=== PATIENT | male | born 1935 | race Caucasian/White ===

== ENCOUNTER 2022-04-02 15:00 | Inpatient (IN) | payer MEDICARE ==
[2022-05-24] MEDS ORDERED: Ketorolac Tromethamine 30 MG/ML VIAL ONE ×2 (11:23→14:04)
[2022-05-24] MEDS ORDERED: Gabapentin 300 MG CAP ONE (11:23)
[2022-05-24] MEDS ORDERED: Acetaminophen 325 MG TAB ONE (11:24)
[2022-05-24 12:27] LABS: SARS-CoV-2 NAA Rapid Test Not Detected (NotDetected)
[2022-05-24] MEDS ORDERED: PROPOFOL 20 ML ONE (13:18)
[2022-05-24] MEDS ORDERED: Fentanyl 100 MCG/2 ML VIAL ONE (13:19)
[2022-05-24] MEDS ORDERED: Ondansetron PF 4 MG/2 ML Vial ONE (13:19)
[2022-05-24] MEDS ORDERED: Rocuronium Bromide 10 MG/ML (10ML VIAL) ONE (13:19)
[2022-05-24] MEDS ORDERED: Tranexamic Acid 1,000 MG/10 ML VIAL ONE (13:23)
[2022-05-24] MEDS ORDERED: Neomycin-Polymyxin 1 ML AMP ONE (13:23)
[2022-05-24] MEDS ORDERED: Bupivacaine PF 0.5% 30 ML VIAL ONE (13:23)
[2022-05-24] MEDS ORDERED: Vancomycin 1 GM VIAL ONE (13:23)
[2022-05-24] MEDS ORDERED: CEFAZOLIN 2 GM VIAL ONE (13:30)
[2022-05-24] MEDS ORDERED: Famotidine/PF 20 mg/2ml Vial ONE (13:32)
[2022-05-24] MEDS ORDERED: SUGAMMADEX SODIUM 200 MG/2 ML VIAL ONE (13:33)
[2022-05-24] MEDS ORDERED: HYDROcodone/Acetaminophen 10/325 mg Tablet PO PRN ×2 (13:40)
[2022-05-24] MEDS ORDERED: Zolpidem Tartrate 5 MG TAB PO PRN (13:40)
[2022-05-24] MEDS ORDERED: Ondansetron PF 4 MG/2 ML Vial IVP PRN (13:40)
[2022-05-24] MEDS ORDERED: diphenhydrAMINE 25 MG CAP PO PRN (13:40)
[2022-05-24] MEDS ORDERED: traMADol HCl 50 MG TAB PO PRN (13:40)
[2022-05-24] MEDS ORDERED: Promethazine HCl 25 MG/ML VIAL IM PRN (13:40)
[2022-05-24] MEDS ORDERED: Tranexamic Acid 1,000 MG in Sodium Chloride 0.9% 100 ML IVPB SCH (13:45)
[2022-05-24] MEDS ORDERED: Glycopyrrolate 0.2 MG/ML 5 ML SYRINGE ONE (13:52)
[2022-05-24] MEDS ORDERED: EPINEPHrine 1 MG/ML AMP ONE (14:04)
[2022-05-24] MEDS ORDERED: Morphine 10 MG/ML VIAL ONE (14:05)
[2022-05-24] MEDS ORDERED: Ropivacaine 0.2% HCl/PF 40 ML ONE (14:05)
[2022-05-24 16:58] VITALS: BMI 25.8
[2022-05-24] MEDS: Aspirin 81 mg Enteric Coated Tablet PO SCH (21:05)
[2022-05-24] MEDS: Senokot S 8.6-50 MG TAB PO SCH (21:05)
[2022-05-24] MEDS: CEFAZOLIN 2 GM in Sodium Chloride 0.9% 100 ML IVPB SCH (21:06)
[2022-05-24] MEDS: Ferrous Gluconate 324 MG TAB PO SCH (21:06)
[2022-05-25 04:13] LABS: Hemoglobin 11.9 g/dL (13.5-17.5); Mean Corpuscular HGB CONC 34.4 g/dL (32.0-36.0); Mean Corpuscular Hemoglobin 32.7 pg (27.0-33.0); Mean Corpuscular Volume 95.1 fl (81.2-95.1); Mean Platelet Volume 11.2 fl (7.4-10.4); Platelet Count 158 10x3/uL (150-450); Red Blood Cell (RBC) Count 3.64 10x6/uL (4.32-5.72); White Blood Cell (WBC) Count 8.1 10x3/uL (3.5-10.5)
[2022-05-25] MEDS: CEFAZOLIN 2 GM in Sodium Chloride 0.9% 100 ML IVPB SCH (05:49)
[2022-05-25] MEDS: Multivitamin W/ Minerals 1 TAB PO SCH (10:35)
[2022-05-25] MEDS: Ferrous Gluconate 324 MG TAB PO SCH ×2 (10:35→20:07)
[2022-05-25] MEDS: Senokot S 8.6-50 MG TAB PO SCH ×2 (10:35→20:08)
[2022-05-25] MEDS: Aspirin 81 mg Enteric Coated Tablet PO SCH ×2 (10:35→20:08)
[2022-05-25] MEDS: Acetaminophen 325 MG TAB PO PRN ×2 (11:53→15:46)
[2022-05-25] MEDS ORDERED: Metoprolol Tartrate 25 MG TAB PO SCH (12:00)
[2022-05-25] MEDS ORDERED: Lisinopril 20 MG TAB PO SCH (12:00)
[2022-05-26 05:55] LABS: Hemoglobin 12.1 g/dL (13.5-17.5); Mean Corpuscular HGB CONC 35.2 g/dL (32.0-36.0); Mean Corpuscular Volume 93.7 fl (81.2-95.1); Mean Platelet Volume 10.7 fl (7.4-10.4); Platelet Count 147 10x3/uL (150-450); RBC Distribution Width 13.7 % (11.5-14.5); Red Blood Cell (RBC) Count 3.67 10x6/uL (4.32-5.72); White Blood Cell (WBC) Count 9.1 10x3/uL (3.5-10.5)
[2022-05-26] MEDS: Ferrous Gluconate 324 MG TAB PO SCH (08:58)
[2022-05-26] MEDS: Senokot S 8.6-50 MG TAB PO SCH (08:59)
[2022-05-26] MEDS: Aspirin 81 mg Enteric Coated Tablet PO SCH (09:00)
[2022-05-26] MEDS ORDERED: Metoprolol Tartrate 25 MG TAB PO SCH (09:00)
[2022-05-26] MEDS ORDERED: Lisinopril 20 MG TAB PO SCH (09:00)
[2022-05-26] MEDS: Multivitamin W/ Minerals 1 TAB PO SCH (09:00)
[2022-05-26] MEDS: Acetaminophen 325 MG TAB PO PRN (09:01)
[2022-05-26] MEDS ORDERED: Tamsulosin HCl 0.4 MG CAP PO SCH (10:15)
[2022-05-26 17:30] VITALS: BP 153/69; TEMP 98.6
[2022-05-27] MEDS ORDERED: Tamsulosin HCl 0.4 MG CAP PO SCH (09:00)
== END 2022-05-26 18:06 | disposition home or self-care (01) | DRG 470 ==
LOC: CSHERHOLD 05-24 11:00 → CSHTELE 05-24 16:41
PROVIDERS: ADMIT Orthopaedic Surgery; ATTEND Orthopaedic Surgery
PROC: 0SRB03Z Replacement of Left Hip Joint with Ceramic Synthetic Substitute, Open Approach (ICD-10-PCS; principal; 2022-05-24)
DX: M16.12 Unilateral primary osteoarthritis, left hip (principal); J98.11 Atelectasis; I11.9 Hypertensive heart disease without heart failure; Z98.890 Other specified postprocedural states; Z79.82 Long term (current) use of aspirin; Z79.899 Other long term (current) drug therapy; Z20.822 Contact with and (suspected) exposure to COVID-19
CPT/HCPCS: 36415; 72170; 85027; 94760; C1713; C1889; J0171; J1885; J2270; J2405; J2704; J2795; J3010; J3370; J3490; S0020; S0028; U0002

== ENCOUNTER 2022-05-20 09:43 | Outpatient (CLI) | payer MEDICARE ==
[2022-05-20 11:10] LABS: Hemoglobin 15.9 g/dL (13.5-17.5); Mean Corpuscular HGB CONC 34.7 g/dL (32.0-36.0); Mean Corpuscular Hemoglobin 32.6 pg (27.0-33.0); Mean Platelet Volume 11.2 fl (7.4-10.4); Platelet Count 170 10x3/uL (150-450); RBC Distribution Width 14.3 % (11.5-14.5); Red Blood Cell (RBC) Count 4.87 10x6/uL (4.32-5.72); White Blood Cell (WBC) Count 5.3 10x3/uL (3.5-10.5)
[2022-05-20 11:42] LABS: Anion Gap 15 mmol/L (10-20); BUN (Urea Nitrogen) 35 mg/dL (8.4-25.7); Calc. Creatinine Clearance 0 mL/min (70-130); Calcium 9.6 mg/dL (7.8-10.44); Carbon Dioxide 22 mmol/L (23-31); Chloride 108 mmol/L (98-107); Estimated GFR 41; Glucose 81 mg/dL (83-110); Potassium 5.4 mmol/L (3.5-5.1); Sodium 140 mmol/L (136-145)
[2022-05-20 11:45] LABS: PTT 30.4 sec (22.0-33.0); Prothrombin Time 10.9 sec (9.5-12.1)
[2022-05-20 20:40] LABS: Hemoglobin A1c 5.3 % (4.0-6.0)
== END 2022-05-20 09:44 | disposition home or self-care (01) ==
LOC: CSHLAB 09:43
PROVIDERS: ATTEND Orthopaedic Surgery
DX: Z01.812 Encounter for preprocedural laboratory examination (principal); M16.12 Unilateral primary osteoarthritis, left hip
CPT/HCPCS: 80048; 82306; 83036; 85027; 85610; 85730; 87081